=== PATIENT | female | born 1955 | race Two or more races ===

== ENCOUNTER → 2020-10-26 10:57 | Outpatient (CLI) | payer OTHER | END | disposition home or self-care (01) | LOC: MAMO-SONO 10:45 | PROVIDERS: ATTEND Internal Medicine | DX: N64.4 Mastodynia (principal); Z12.31 Encounter for screening mammogram for malignant neoplasm of breast ==

== ENCOUNTER 2021-12-17 11:24 | Outpatient (CLI) | payer OTHER | END 2021-12-17 11:37 | disposition home or self-care (01) | LOC: MAMO-SONO 11:24 | PROVIDERS: ATTEND Internal Medicine | DX: N64.4 Mastodynia (principal) ==

== ENCOUNTER 2022-05-02 09:49 | Outpatient (CLI) | payer OTHER | END 2022-05-02 09:56 | disposition home or self-care (01) | LOC: RAD 09:49 | PROVIDERS: ATTEND Physical Medicine & Rehabilitation | DX: S84.02XA Injury of tibial nerve at lower leg level, left leg, initial encounter (principal); M17.0 Bilateral primary osteoarthritis of knee ==

== ENCOUNTER 2023-05-13 09:52 | Outpatient (CLI) | payer OTHER | END 2023-05-13 09:59 | disposition home or self-care (01) | LOC: MAMO-SONO 09:52 | DX: I70.0 Atherosclerosis of aorta (principal); N64.9 Disorder of breast, unspecified; Z12.31 Encounter for screening mammogram for malignant neoplasm of breast ==

== ENCOUNTER 2023-05-15 11:22 | Outpatient (CLI) | payer OTHER | END 2023-05-15 11:29 | disposition home or self-care (01) | LOC: SONOGRAMA 11:22 | DX: M76.822 Posterior tibial tendinitis, left leg (principal); M77.9 Enthesopathy, unspecified ==

== ENCOUNTER 2023-06-02 13:45 | Outpatient (CLI) | payer OTHER | END 2023-06-02 13:47 | disposition home or self-care (01) | LOC: NUCLEAR 13:45 | DX: M81.0 Age-related osteoporosis without current pathological fracture (principal) ==